=== PATIENT | male | born 1960 | race African-American/Black ===

== ENCOUNTER 2024-08-05 05:49 | Emergency (ER) | payer OTHER, BC ==
[2024-08-05 06:34] VITALS: BP 137/65; PULSE 37; RESP 20; TEMP 97.5; BMI 28.3
[2024-08-05] MEDS ORDERED: IBUPROFEN 600 MG TABLET (FP) PO ONE (06:47)
[2024-08-05] MEDS: IBUPROFEN 600 MG TABLET (FP) PO ONE (06:52)
== END 2024-08-05 06:56 | disposition home or self-care (01) ==
LOC: JER 05:49
DX: M25.561 Pain in right knee (principal); M79.89 Other specified soft tissue disorders; W20.8XXA Other cause of strike by thrown, projected or falling object, initial encounter
CPT/HCPCS: 73564-TC-RT-FY; 99284-25